=== PATIENT | male | born 1970 | race Caucasian/White ===

== ENCOUNTER 2021-10-02 10:36 | Outpatient (CLI) | payer OTHER ==
--- NOTE | 2021-10-02 11:32 | XRay Report ---
CHEST 2 VIEWS INDICATION / CLINICAL INFORMATION: TO RULE OUT ACTIVE TB. COMPARISON: None available. FINDINGS: SUPPORT DEVICES: None. HEART / MEDIASTINUM: No significant abnormality. LUNGS / PLEURA: No significant pulmonary or pleural abnormality. No pneumothorax. ADDITIONAL FINDINGS: No significant additional findings. IMPRESSION: 1. No acute findings. No findings to suggest pulmonary tuberculosis. Signer Name: Theodore Gonzales Jr, MD Signed: 10/02/2021 11:27 AM Workstation Name: [id number]
== END 2021-10-02 10:37 | disposition home or self-care (01) ==
LOC: XRAY 10:36
PROVIDERS: ATTEND Psychiatry & Neurology Psychiatry
DX: R30.0 Dysuria (principal); K05.30 Chronic periodontitis, unspecified; N42.9 Disorder of prostate, unspecified
CPT/HCPCS: 71046